=== PATIENT | male | born 2005 | race African-American/Black ===

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

== ENCOUNTER 2024-12-08 17:52 | Emergency (ER) | payer BC, SELFPAY ==
--- NOTE | 2024-12-08 18:02 | ED_ITS ---
HPI - Male Genitourinary General Chief complaint: Urogenital-Male Stated complaint: Urogenital Irritation Time Seen by Provider: 12/08/24 18:06 Source: patient and RN notes reviewed Mode of arrival: ambulatory Limitations: no limitations History of Present Illness HPI Narrative: 19-year-old male presents with concern for a rash on his penis. He reports itchiness and irritation between the testicles and shaft of his penis on the underside. He reports it has been there 2 weeks. He denies any other rash anywhere else. Reports this seems to get worse when he is hot sweaty. He has used [id number] ?jock itch? cream for 2 weeks without relief. He denies any concern for STDs. He denies dysuria, frequency, urgency. Denies testicular redness, swelling, warmth, pain. Complaint: other (Rash) Related Data Allergies Allergy/AdvReac Type Severity Reaction Status Date / Time Penicillins Allergy Severe Anaphylaxis Verified 12/08/24 18:09 amoxicillin Allergy Unknown Hives Verified 12/08/24 18:09 Review of Systems Review of Systems: CONSTITUTIONAL: Denies malaise, chills, sweats, or fever. SKIN: Reports rash at the base of his penis between the shaft and the testicles All systems reviewed & are unremarkable except as noted in HPI and below PMFSH Past Medical History Medical History HTN (hypertension) Pre-diabetes Undescended testicle, unilateral Surgical History Surgical History History of testicular surgery Social History Social History Smoking status: Current every day smoker Tobacco type: e-cigarettes/vaping Alcohol intake: never Substance use: never Living arrangements: with family Gender identity (if verbalized by the patient): Male Comments At time of signature, agree with nursing past medical, surgical, social and family history. There is no relevant family history pertinent to the presenting complaint Exam Narrative: GENERAL: Well-appearing, well-nourished, and in no acute distress. HEAD: Normocephalic EYES: PERRLA ENT: Mucous membranes moist. NECK: Supple. No lymphadenopathy CHEST: Clear to auscultation. No respiratory distress. HEART: Regular rate and rhythm. SKIN: Warm, dry. Approximately 1 cm x 3 cm area of mild excoriation noted at the base of the shaft of the penis between the penis and testicles. : No testicular erythema, edema, tenderness noted. Shaft penis is unremarkable. NEURO: Alert and oriented x3. PSYCH: Normal mood and affect Course Course Emergency Course: Patient is aware of diagnosis, understands and agrees to treatment plan. Anticipatory guidance given. Patient agrees to follow-up as directed and is aware of reasons to seek care at the emergency department. Portions of this record may have been created with voice recognition software Level of Care: Express Care Visit Vital Signs Vital signs: Reviewed. MDM - Male Genitourinary MDM Narrative Medical decision making narrative: Does not appear at this time to be erythema multiforme, bullous, SJS, TEN; no evidence at this time to suggest RMSF, endocarditis or Lyme disease; patient looks well, nontoxic and is tolerating oral intake; no neurologic signs or symptoms; no headache, photophobia or neck pain; afebrile; appropriate for initial outpatient treatment; discussed the importance of follow-up, patient agrees; question, viral exanthema, contact dermatitis, allergic dermatitis, eczema, urticaria, STD. No soft palate or uvula edema, no tongue, lip edema or other mucosal involvement, no respiratory compromise, no stridor, no wheezing, no wheezing, no history of syncope, no hypotension, no nausea, vomiting, or diarrhea. Instructed patient to go to nearest ER immediately for any worsening symptoms including but not limited to: fever, spreading rash, pain, sore throat, headache, dizziness, chest pain, trouble breathing, or any symptoms concerning to the patient. Critical Care Time Critical Care Time Critical Care Time: No Discharge Plan Discharge Clinical Impression: Dermatitis Patient Disposition: Home Condition: Stable Instructions: Dermatitis (ED) Additional Instructions: Wash the area with gentle soap and water only. Use skin cream as prescribed Dry thoroughly after bathing. Avoid scratching when possible to prevent worsening of the condition and disruption of the skin that could lead to bacterial infection To relieve itching, place a cool washcloth or some ice over the area that itches, rather than scratching Follow up with primary care provider or seek ER if you have trouble breathing, become hoarse, or start wheezing, develop belly cramps, vomiting or feel dizzy. Patient Language: Croatian Prescriptions: New clotrimazole-betamethasone 1-0.05 % cream 1 applic TOPICAL BID 14 Days Qty: 45 1RF Follow-up/Referrals: PHYSICIAN,[employer] [Primary Care Provider] - Stand Alone Forms: Work/School Release IP Time of Disposition: 18:15
[2024-12-08 18:03] VITALS: BP 176/103; PULSE 81; RESP 16; TEMP 36.5; O2SAT 100
== END 2024-12-08 18:20 | disposition home or self-care (01) ==
PROVIDERS: Emergency Provider Nurse Practitioner
DX: L30.9 Dermatitis, unspecified (principal); F17.290 Nicotine dependence, other tobacco product, uncomplicated; I10 Essential (primary) hypertension; R73.03 Prediabetes
CPT/HCPCS: 99213; G0463